=== PATIENT | male | born 1935 | race Caucasian/White ===

== ENCOUNTER 2017-07-19 10:42 | Emergency (ER) | payer MEDICARE ==
[~2017-07-19] VITALS: Ht 172.7 cm; Wt 59.0 kg
[~2017-07-19 10:42] MED LIST: ADV50100 IH; ALBU17AE26 IH; ALT5C PO; Fish oil PO; Glucosamine PO; Ibuprofen PO; OXYC-145 PO; P EP PO; PANT40VI2 PO; Viagra; ZET10T PO
[2017-07-19 10:54] VITALS: BP 149/96
[2017-07-19] MEDS ORDERED: TETanus/Pertussis (Acell)/Diphther VAC/PF (Tdap-Adult) 0.5ml syringe IM ONE (12:00)
== END 2017-07-19 12:08 | disposition home or self-care (01) ==
LOC: ER 10:43
DX: S01.01XA Laceration without foreign body of scalp, initial encounter (principal); I12.9 Hypertensive chronic kidney disease with stage 1 through stage 4 chronic kidney disease, or unspecified chronic kidney disease; N18.9 Chronic kidney disease, unspecified; J45.909 Unspecified asthma, uncomplicated; Z91.018 Allergy to other foods; Z88.2 Allergy status to sulfonamides; Z91.011 Allergy to milk products; X58.XXXA Exposure to other specified factors, initial encounter; Y93.52 Activity, horseback riding; Y92.89 Other specified places as the place of occurrence of the external cause; Y99.8 Other external cause status
CPT/HCPCS: 90471; 90715; 99283

== ENCOUNTER 2019-05-04 09:31 | Emergency (ER) | payer MEDICARE ==
[~2019-05-04] VITALS: Ht 172.7 cm; Wt 84.1 kg
[2019-05-04] MEDS ORDERED: HYDROcodone/acetaminophen 10/325mg tab PO ONE (09:50)
[2019-05-04] MEDS ORDERED: HYDR-4353 PO (09:53)
[2019-05-04 11:04] VITALS: BP 130/80
== END 2019-05-04 11:06 | disposition home or self-care (01) ==
LOC: ER 09:32
DX: S42.121A Displaced fracture of acromial process, right shoulder, initial encounter for closed fracture (principal); J45.909 Unspecified asthma, uncomplicated; I12.9 Hypertensive chronic kidney disease with stage 1 through stage 4 chronic kidney disease, or unspecified chronic kidney disease; N18.9 Chronic kidney disease, unspecified; N40.0 Benign prostatic hyperplasia without lower urinary tract symptoms; Z91.018 Allergy to other foods; Z88.2 Allergy status to sulfonamides; Z91.011 Allergy to milk products; Z88.8 Allergy status to other drugs, medicaments and biological substances; Z79.899 Other long term (current) drug therapy; Z98.890 Other specified postprocedural states; W18.39XA Other fall on same level, initial encounter; Y93.89 Activity, other specified; Y92.89 Other specified places as the place of occurrence of the external cause; Y99.8 Other external cause status
CPT/HCPCS: 29105; 73030; 99284